=== PATIENT | female | born 1960 ===

== ENCOUNTER 2019-05-01 12:24 | Outpatient (CLI) | payer MEDICARE, MEDICAID | END 2019-05-01 23:59 | disposition home or self-care (01) | LOC: PETCFH 12:24 | PROVIDERS: ATTEND Specialist | DX: C83.39 Diffuse large B-cell lymphoma, extranodal and solid organ sites (principal) | CPT/HCPCS: 78815; A9552 ==

== ENCOUNTER 2019-05-08 06:13 | Day surgery (SDC) | payer MEDICARE, MEDICAID ==
[~2019-05-08] VITALS: Ht 162.6 cm; Wt 62.0 kg
[2019-05-08] MEDS ORDERED: SODIUM CHLORIDE 0.9% 1,000 ML IV SCH (07:12)
[2019-05-08 07:17] VITALS: BP 130/68
[2019-05-08] MEDS ORDERED: LIDOCAINE 1%, 10ML ONE ×2 (07:55→08:42)
[2019-05-08] MEDS ORDERED: FLUMAZENIL 0.1 MG/1 ML, 5ML ONE (07:55)
[2019-05-08] MEDS ORDERED: FENTANYL PF 100 MCG/2ML ONE (07:55)
[2019-05-08] MEDS ORDERED: MIDAZOLAM 1 MG/ML, 5ML ONE (07:55)
[2019-05-08] MEDS ORDERED: NALOXONE 1 MG/ML, 2ML ONE (07:55)
[2019-05-08 07:59] LABS: BASOPHILS # (AUTO) 0.03 x10^3/uL (0-0.1); BASOPHILS % (AUTO) 1 % (0-1); EOSINOPHILS # (AUTO) 0.12 x10^3/uL (0-0.4); EOSINOPHILS % (AUTO) 2 % (1-7); LYMPHOCYTES # (AUTO) 2.18 x10^3/uL (1-3.4); LYMPHOCYTES % (AUTO) 35 % (22-44); MD NO; MEAN CORPUSCULAR HEMOGLOBIN 31.9 pg (27.0-34.8); MEAN CORPUSCULAR HGB CONC 34.1 g/dL (32.4-35.8); MEAN CORPUSCULAR VOLUME 93.6 fL (80-100); MEAN PLATELET VOLUME 8.3 fL (7.4-10.4); MONOCYTES # (AUTO) 0.35 x10^3/uL (0.2-0.8); MONOCYTES % (AUTO) 6 % (2-9); NEUTROPHILS # (AUTO) 3.62 x10^3/uL (1.8-6.8); NEUTROPHILS % (AUTO) 58 % (42-75); PLATELET COUNT 293 x10^3/uL (130-400); RED BLOOD COUNT 4.94 x10^6/uL (3.82-5.3)
== END 2019-05-08 10:36 | disposition home or self-care (01) ==
LOC: OUT 06:13
PROVIDERS: ATTEND Specialist
DX: C85.93 Non-Hodgkin lymphoma, unspecified, intra-abdominal lymph nodes (principal); E89.0 Postprocedural hypothyroidism; F12.90 Cannabis use, unspecified, uncomplicated; F17.210 Nicotine dependence, cigarettes, uncomplicated; Z72.89 Other problems related to lifestyle; Z79.890 Hormone replacement therapy; Z79.899 Other long term (current) drug therapy; Z86.010 Personal history of colon polyps; Z88.1 Allergy status to other antibiotic agents; Z90.710 Acquired absence of both cervix and uterus; Z90.79 Acquired absence of other genital organ(s); Z90.722 Acquired absence of ovaries, bilateral; Z82.49 Family history of ischemic heart disease and other diseases of the circulatory system
CPT/HCPCS: 36415; 38222; 77012; 85025; 85097; 88184; 88185; 88237; 88264; 88280; 88305; 88311; 88313; 99156; 99157; J2250; J3010; 85060; J2310